=== PATIENT | female | born 1995 | race Caucasian/White ===

== ENCOUNTER 2016-12-09 10:56 | Emergency (ER) | payer BC, OTHER ==
[~2016-12-09] VITALS: Ht 167.6 cm; Wt 74.8 kg
--- NOTE | 2016-12-09 11:23 | ED Abdominal Pain ---
General Stated Complaint: STOMACH PAIN/DIARRHEA Source of Information: Patient Exam Limitations: No Limitations History of Present Illness Time Seen By Provider: 11:22 Initial Comments To ER with reports of right lower abdominal pain associated with nausea since this morning. No fevers or chills. No vomiting. No diarrhea or constipation or dysuria. Timing/Duration: 1-2 Days Severity/Quality: Cramping Associated Symptoms: Nausea/Vomiting Allergies and Home Medications Allergies Coded Allergies: No Known Drug Allergies (Unverified , 12/09/16) Review of Systems Constitutional: see HPI EENTM: No Symptoms Reported Respiratory: No Symptoms Reported Cardiovascular: No Symptoms Reported Gastrointestinal: See HPI, Abdominal Pain, Denies Constipated, Denies Diarrhea , Nausea Genitourinary: No Symptoms Reported Musculoskeletal: no symptoms reported Skin: no symptoms reported Psychiatric/Neurological: No Symptoms Reported Past Xzflzrd-Uygaoj-Buemia Hx Patient Social History Recent Foreign Travel: No Contact w/Someone Who Travel: No Physical Exam Vital Signs Capillary Refill : General Appearance: WD/WN, no apparent distress HEENT: PERRL/EOMI, normal ENT inspection Neck: non-tender, full range of motion Respiratory: no respiratory distress, no accessory muscle use Cardiovascular: regular rate, rhythm, no murmur Gastrointestinal: normal bowel sounds, soft, tenderness Extremities: normal range of motion, non-tender Neurologic/Psychiatric: alert, normal mood/affect, oriented x 3 Skin: normal color, warm/dry Progress/Results/Core Measures Results/Orders Lab Results Laboratory Tests Test 12/09/16 11:25 12/09/16 11:45 Range/Units White Blood Count 12.1 H 4.3-11.0 10^3/uL Red Blood Count 4.75 4.35-5.85 10^6/uL Hemoglobin 13.4 11.5-16.0 G/DL Hematocrit 40 35-52 % Mean Corpuscular Volume 84 80-99 FL Mean Corpuscular Hemoglobin 28 25-34 PG Mean Corpuscular Hemoglobin Concent 34 32-36 G/DL Red Cell Distribution Width 13.4 10.0-14.5 % Platelet Count 414 H 130-400 10^3/uL Mean Platelet Volume 9.5 7.4-10.4 FL Neutrophils (%) (Auto) 76 H 42-75 % Lymphocytes (%) (Auto) 17 12-44 % Monocytes (%) (Auto) 7 0-12 % Eosinophils (%) (Auto) 1 0-10 % Basophils (%) (Auto) 0 0-10 % Neutrophils # (Auto) 9.1 H 1.8-7.8 X 10^3 Lymphocytes # (Auto) 2.0 1.0-4.0 X 10^3 Monocytes # (Auto) 0.8 0.0-1.0 X 10^3 Eosinophils # (Auto) 0.1 0.0-0.3 10^3/uL Basophils # (Auto) 0.0 0.0-0.1 10^3/uL Sodium Level 140 135-145 MMOL/L Potassium Level 3.6 3.6-5.0 MMOL/L Chloride Level 107 98-107 MMOL/L Carbon Dioxide Level 23 21-32 MMOL/L Anion Gap 10 5-14 MMOL/L Blood Urea Nitrogen 9 7-18 MG/DL Creatinine 0.78 0.60-1.30 MG/DL Estimat Glomerular Filtration Rate > 60 BUN/Creatinine Ratio 12 Glucose Level 93 70-105 MG/DL Calcium Level 9.5 8.5-10.1 MG/DL Total Bilirubin 0.4 0.1-1.0 MG/DL Aspartate Amino Transf (AST/SGOT) 12 5-34 U/L Alanine Aminotransferase (ALT/SGPT) 11 0-55 U/L Alkaline Phosphatase 61 40-136 U/L Total Protein 8.0 6.4-8.2 GM/DL Albumin 4.4 3.2-4.5 GM/DL Serum Test, Qualitative NEGATIVE NEGATIVE Urine Color YELLOW Urine Clarity CLEAR Urine pH 5 5-9 Urine Specific [place] 1.020 1.016-1.022 Urine Protein 1+ H NEGATIVE Urine Glucose (UA) NEGATIVE NEGATIVE Urine Ketones NEGATIVE NEGATIVE Urine Nitrite NEGATIVE NEGATIVE Urine Bilirubin NEGATIVE NEGATIVE Urine Urobilinogen NORMAL NORMAL MG/DL Urine Leukocyte Esterase 1+ H NEGATIVE Urine RBC (Auto) 1+ H NEGATIVE Urine RBC 0-2 /HPF Urine WBC 5-10 H /HPF Urine Squamous Epithelial Cells 2-5 /HPF Urine Crystals PRESENT H /LPF Urine Calcium Oxalate Crystals FEW H /LPF Urine Bacteria LARGE H /HPF Urine Casts NONE /LPF Urine Mucus NEGATIVE /LPF Urine Culture Indicated YES My Orders Orders - MINDI POLANCO BASS FISHER Cbc With Automated Diff (12/09/16 11:20) Comprehensive Metabolic Panel (12/09/16 11:20) Ua Culture If Indicated (12/09/16 11:20) Saline Lock/Iv-Start (12/09/16 11:20) Urine Bedside (12/09/16 11:20) Ketorolac Injection (Toradol Injection) (12/09/16 11:30) Ondansetron Injection (Zofran Injectio (12/09/16 11:30) Ct Abd/Pelv W (Appendicitis) (12/09/16 11:20) Iohexol Injection (Omnipaque 350 Mg/Ml 1 (12/09/16 11:30) Ns (Ivpb) (Sodium Chloride 0.9% Ivpb Bag (12/09/16 11:30) Hcg,Qualitative Serum (12/09/16 11:35) Urine Culture (12/09/16 11:45) Ceftriaxone Injection (Rocephin Injectio (12/09/16 12:45) Medications Given in ED Current Medications Medications Dose Ordered Sig/Guy Route Start Time Stop Time Status Last Admin Dose Admin Ceftriaxone Sodium 1000 mg/ Sodium Chloride 50 ml @ 100 mls/hr ONCE ONCE IV 12/09/16 12:45 12/09/16 13:14 12/09/16 12:53 100 MLS/HR Iohexol 100 ml ONCE ONCE IV 12/09/16 11:30 12/09/16 11:31 DC 12/09/16 12:07 100 ML Ketorolac Tromethamine 30 mg ONCE ONCE IVP 12/09/16 11:30 12/09/16 11:31 DC 12/09/16 11:45 30 MG Ondansetron HCl 4 mg ONCE ONCE IVP 12/09/16 11:30 12/09/16 11:31 DC 12/09/16 11:46 4 MG Sodium Chloride 100 ml ONCE ONCE IV 12/09/16 11:30 12/09/16 11:31 DC 12/09/16 12:07 80 ML Diagnostic Imaging Diagonstic Imaging: CT Comments NAME: GREG LONGORIA [facility] REC#: [id number] PT STATUS: REG ER : 1995 PHYSICIAN: MINDI POLANCO BASS FISHER ADMIT DATE: 12/09/16/ER Signed Date of Exam:12/09/16 CT ABD/PELV W (APPENDICITIS) PROCEDURE: CT abdomen and pelvis with contrast, rule out appendicitis. TECHNIQUE: Multiple contiguous axial images were obtained through the abdomen and pelvis after the administration of intravenous contrast. INDICATION: Abdominal pain. Evaluate for appendicitis. COMPARISON: None FINDINGS: The lung bases are clear. The liver, gallbladder, pancreas, spleen and adrenal glands appear unremarkable. There is a 9 mm cyst in the inferior left renal cortex. The left kidney is otherwise unremarkable. There is mild perinephric stranding of the right kidney. Additionally, there is a 2 cm somewhat masslike area of hypoenhancement in the lateral right renal cortex which is nonspecific but may be related to lobar nephronia. There is mild caliectasis, pelviectasis and right hydroureter. There is a 3 mm stone in the distal right ureter just proximal to the ureterovesical junction. Suspect additional stone in the mid right kidney. The appendix appears normal. Uterus and adnexa appear unremarkable. Diffuse thickening of the colonic wall is likely due to incomplete distention. There is no free fluid, free air or adenopathy. The abdominal aorta appears normal in caliber. No osseous abnormality is seen. IMPRESSION: 1. The appendix is visualized and appears normal. 2. There is a 3 mm stone in the distal right ureter with mild obstructive change. Additional right nephrolithiasis. 3. Some paranephric stranding of the right kidney may be related to obstructive change. Additionally though there is a 2 cm somewhat masslike area of hypoenhancement in the lateral right renal cortex. This may be related to lobar nephronia/infection. It is however indeterminate. Short-term followup study is recommended. Dictated by: Dictated on workstation # [id number] Dict: 12/09/16 1217 Trans: 12/09/[address] [facility] [id number] Interpreted by: KRISH MOSS DO Electronically signed by: KRISH MOSS DO 12/09/16 1229 Departure Communication (Admissions) Progress Notes Patient does have a negative test that was performed at the [facility]. I do have these records in front of me. I did discuss the CT report and the patient presentation with Dr. Miller. He recommends oral antibiotics, pain control and that she should call his office Monday morning for a follow-up appointment. In the meantime, she should return to the emergency room for any worsening symptoms, fevers or other concerns. 1255-medication record is locked by a director of nursing so I'm unable to prescribe electronically. I will handwritten a prescription for hydrocodone 5 325 one every 4 hours when necessary pain number 30. Ibuprofen 800 mg every 8 hours when necessary pain number 30. Flomax 0.4 mg daily number 15. Bactrim DS one tablet by mouth twice a day number 20. Zofran ODT 8 mg tablets every 6 hours when necessary nausea number 20. 1300- at this time she is totally pain-free. She is without tachycardia or hypotension. She remains afebrile. Impression Impression: Primary Impression: Right ureteral calculus Additional Impression: Urinary tract infection Disposition: HOME, SELF-CARE Condition: Stable Departure-Patient Inst. Decision time for Depature: 12:47 Referrals: NO,LOCAL PHYSICIAN (PCP) Primary Care Physician JESSICA MILLER MD Patient Instructions: Kidney Stones in Adults Add. Discharge Instructions: 1. Drink plenty of fluids. Strain all of your urine. 2. Tylenol in addition to the prescribed pain medications for pain control. You should return to the emergency room for any fevers, worsening pain, nausea or any other worsening or concerning symptoms. Otherwise call Dr. Miller Monday to make an appointment to be seen. He is a urologist. Strain all of your urine. You should see this kidney stone when you pass it. Take the antibiotics as directed this is very important. Work/School Note: Work Release Form Date Seen in the Emergency Department: Dec 09, 2016 Return to Work: Dec 13, 2016 Copy Copies To 1: KANDI JAVIER MD; JESSICA MILLER MD, PETER J APRN Dec 09, 2016 11:23
[2016-12-09 11:30] VITALS: BP 145/89
[2016-12-09] MEDS ORDERED: IOHEXOL 350 MG/ML 100 ML (OMNIPAQUE 350) VIAL IV ONE (11:30)
[2016-12-09] MEDS ORDERED: NS 100 ML (IVPB) BAG IV ONE (11:30)
[2016-12-09] MEDS ORDERED: ONDANSETRON 4 MG/2 ML (SDV) Z0FRAN IVP ONE (11:30)
[2016-12-09] MEDS ORDERED: KETOROLAC 30 MG/ML VIAL IVP ONE (11:30)
[2016-12-09 11:32] LABS: BASOPHILS % (AUTO) 0 % (0-10); EOSINOPHILS # (AUTO) 0.1 10^3/uL (0.0-0.3); EOSINOPHILS % (AUTO) 1 % (0-10); LYMPHOCYTES % (AUTO) 17 % (12-44); MEAN CORPUSCULAR HEMOGLOBIN 28 PG (25-34); MEAN CORPUSCULAR HGB CONC 34 G/DL (32-36); MEAN CORPUSCULAR VOLUME 84 FL (80-99); MEAN PLATELET VOLUME 9.5 FL (7.4-10.4); MONOCYTES # (AUTO) 0.8 X 10^3 (0.0-1.0); MONOCYTES % (AUTO) 7 % (0-12); NEUTROPHILS # (AUTO) 9.1 X 10^3 (1.8-7.8); NEUTROPHILS % (AUTO) 76 % (42-75); PLATELET COUNT 414 10^3/uL (130-400); RED BLOOD COUNT 4.75 10^6/uL (4.35-5.85); RED CELL DISTRIBUTION WIDTH 13.4 % (10.0-14.5); WHITE BLOOD COUNT 12.1 10^3/uL (4.3-11.0)
[2016-12-09 11:54] LABS: BILIRUBIN,URINE NEGATIVE (NEGATIVE); KETONES,URINE NEGATIVE (NEGATIVE); LEUKOCYTE ESTERASE ,URINE 1+ (NEGATIVE); NITRITE,URINE NEGATIVE (NEGATIVE); PH,URINE 5 (5-9); PROTEIN,URINE 1+ (NEGATIVE); UROBILINOGEN,URINE NORMAL (NORMAL)
[2016-12-09 11:56] LABS: ALANINE AMINOTRANSFERASE 11 U/L (0-55); ALBUMIN 4.4 GM/DL (3.2-4.5); ANION GAP 10 MMOL/L (5-14); ASPARTATE AMINO TRANSFERASE 12 U/L (5-34); BILIRUBIN,TOTAL 0.4 MG/DL (0.1-1.0); BLOOD UREA NITROGEN 9 MG/DL (7-18); BUN/CREATININE RATIO 12; CALCIUM 9.5 MG/DL (8.5-10.1); CARBON DIOXIDE 23 MMOL/L (21-32); CHLORIDE 107 MMOL/L (98-107); CREATININE SERUM 0.78 MG/DL (0.60-1.30); GFR ESTIMATED > 60; GLUCOSE 93 MG/DL (70-105); POTASSIUM 3.6 MMOL/L (3.6-5.0); SODIUM 140 MMOL/L (135-145)
[2016-12-09 12:05] LABS: CALCIUM OXALATE CRYSTALS,UR FEW /LPF
--- NOTE | 2016-12-09 12:26 | Diagnostic Imaging Report ---
PROCEDURE: CT abdomen and pelvis with contrast, rule out appendicitis. TECHNIQUE: Multiple contiguous axial images were obtained through the abdomen and pelvis after the administration of intravenous contrast. INDICATION: Abdominal pain. Evaluate for appendicitis. COMPARISON: None FINDINGS: The lung bases are clear. The liver, gallbladder, pancreas, spleen and adrenal glands appear unremarkable. There is a 9 mm cyst in the inferior left renal cortex. The left kidney is otherwise unremarkable. There is mild perinephric stranding of the right kidney. Additionally, there is a 2 cm somewhat masslike area of hypoenhancement in the lateral right renal cortex which is nonspecific but may be related to lobar nephronia. There is mild caliectasis, pelviectasis and right hydroureter. There is a 3 mm stone in the distal right ureter just proximal to the ureterovesical junction. Suspect additional stone in the mid right kidney. The appendix appears normal. Uterus and adnexa appear unremarkable. Diffuse thickening of the colonic wall is likely due to incomplete distention. There is no free fluid, free air or adenopathy. The abdominal aorta appears normal in caliber. No osseous abnormality is seen. IMPRESSION: 1. The appendix is visualized and appears normal. 2. There is a 3 mm stone in the distal right ureter with mild obstructive change. Additional right nephrolithiasis. 3. Some paranephric stranding of the right kidney may be related to obstructive change. Additionally though there is a 2 cm somewhat masslike area of hypoenhancement in the lateral right renal cortex. This may be related to lobar nephronia/infection. It is however indeterminate. Short-term followup study is recommended. Dictated by: Dictated on workstation # [id number]
[2016-12-09] MEDS ORDERED: cefTRIAXone INJECTION 1,000 MG in NS (IVPB) 50 ML IV ONE (12:45)
== END 2016-12-09 13:31 | disposition home or self-care (01) ==
LOC: ER 11:00
DX: N20.9 Urinary calculus, unspecified (principal); N39.0 Urinary tract infection, site not specified
CPT/HCPCS: 36415; 74177; 80053; 81000; 84703; 85025; 87077; 87088; 87186

== ENCOUNTER → 2016-12-14 | Outpatient (CLI) | payer BC ==
--- NOTE | 2016-12-14 19:18 | Diagnostic Imaging Report ---
EXAMINATION: Supine view of the abdomen. INDICATION: Right ureteric stone. FINDINGS: There is a 4 mm calcification seen at the right UVJ junction area, which may relate to the distal right ureteric stone seen on CT from 12/09/2016. There is suggestion of a 2 mm stone in the lower pole of the right kidney. No left ureteric or kidney stone is evident on this radiograph. IMPRESSION: 1. A 4 mm calcification in the right side of the pelvis is probably the distal right ureteric stone seen on recent CT scan. 2. A 2 mm lower pole right kidney stone is also confirmed on recent CT. Dictated by: Dictated on workstation # [id number]
== END ==
LOC: RAD 14:28
PROVIDERS: ATTEND Urology
DX: N20.0 Calculus of kidney (principal)
CPT/HCPCS: 74000